=== PATIENT | male | born 1995 | race Caucasian/White ===

== ENCOUNTER → 2018-06-21 13:07 | Outpatient (CLI) | payer OTHER ==
--- NOTE | ~2018-06-21 | EC ---
PATIENT:SUMAYA MARTINEZ DATE OF SERVICE: 06/21/18 SEX: M MEDICAL RECORD: [id number] DATE OF : [birth year] LOCATION:D.FORMERLY [facility] AGE OF PATIENT: 23 ADMISSION DATE: 06/21/18 REFERRING PHYSICIAN: INTERPRETING PHYSICIAN: MONTY CENTENO MD ECHOCARDIOGRAM REPORT ECHO CHARGES 4 ECHO COMPLETE Date: 06/21/18 CLINICAL DIAGNOSIS: BUBBLE STUDY TO ASSESS SHUNT, HX OF CVA ECHOCARDIOGRAPHIC MEASUREMENTS (adult normal given) AC root (d.<3.7cm) 2.9 cm LV Septum d (<1.2 cm> 1.5 cm Valve Excursion 1.9 cm LV Septum (systole) 1.6 cm Left Atria (s.<4.0cm> 3.3 cm LVPW d(<1.2cm) 1.3 cm RV (d.<2.3cm) 3.2 cm LVPW (sytole) 1.6 cm LV diastole(<5.6CM) 4.3 cm MV E-F(>70mm/sec) cm LV systole 3.3 cm LVOT Diameter 2.0 cm MV exc.(>10mm) 2.6 cm Est.ejection fraction (50-75%) % DOPPLER: LVIT cm/sec A 86.0 cm/sec E 101 cm/sec LA cm/sec RVSP 24 mmHg LVOT 126 cm/sec AOP1/2T m/s Asc. Ao 149 cm/sec RVOT cm/sec RA cm/sec PA 161 cm/sec AV Gradient Peak 8.89 mmHg AV Mean 4.57 mmHg AV Area 3.3 cm MV Gradient Peak 4.45 mmHg MV Mean 2.34 mmHg MV Area cm COMMENTS: Photonics Engineering Technician: Se SALINAS Community Service Officer: Se Pressley TAPE# PACS Pericardial Effusion N DATE OF SERVICE: 06/21/2018 PROCEDURE: Echocardiogram with bubble study. FINDINGS: 1. Left ventricular chamber size is within normal limits. Left ventricular systolic function is normal. Overall ejection fraction estimated 60%. 2. Left atrium, right atrium, and right ventricle chamber sizes are within normal limits. 3. Valvular structures have normal structure and motion. ECHOCARDIOGRAM REPORT [id number] SUMAYA MARTINEZ 4. Doppler interrogation reveals no significant valvular insufficiency or stenosis. Pulmonary systolic pressure is estimated 24 mmHg. 5. Bubble study was performed. There was a small atrial septal defect. The patient gives history of a possible ventricular septal defect, but this definitely appears to be an atrial septal defect with a very small amount of bubbles crossing this. OVERALL IMPRESSION: Small atrial septal defect of minimal hemodynamic significance with minimal bubbles crossing this during the bubble study. TRANSINT:[id number] Voice Confirmation ID: [id number] DOCUMENT ID: [id number] MONTY CENTENO MD at 1914 CC: [id number] DICTATION DATE: 06/21/18 1414 CLINICAL TRIAL COORDINATOR: 06/21/18 1445 [facility] [address] [place] [address]
== END | disposition home or self-care (01) ==
LOC: D.ECHO 06-14 13:30
DX: Q21.1 Atrial septal defect (principal)